=== PATIENT | female | born 1970 | race Caucasian/White ===

== ENCOUNTER 2017-05-03 07:32 | Observation (INO) | payer BC ==
[2017-05-03] MEDS ORDERED: MORPHINE SULFATE 10 MG/ML SOL IV ONE (08:08)
[2017-05-03] MEDS ORDERED: MORPHINE SULFATE 10 MG/ML SOL ONE (08:11)
[2017-05-03] MEDS: SODIUM CHLORIDE 0.9% FLUSH 10 ML SOL IV PRN ×2 (08:15→21:40)
[2017-05-03 08:20] LABS: BASOPHILS % (AUTO) 0 % (0-3); EOSINOPHILS % (AUTO) 0 % (0-9); HEMATOCRIT 40 % (35-47); MEAN CORPUSCULAR HGB CONC 33.1 gm/dl (32.0-36.0); MONOCYTES % (AUTO) 5.9 % (0-12); NEUTROPHILS % (AUTO) 85.7 % (37-80)
[2017-05-03 08:21] LABS: MEAN CORPUSCULAR VOLUME 77 fL (81-99)
[2017-05-03 08:39] LABS: ALBUMIN 3.4 gm/dl (3.4-5.0); POTASSIUM 3.7 mMol/L (3.5-5.1)
[2017-05-03] MEDS ORDERED: SODIUM CHLORIDE 0.9% 1000ML 1,000 ML IV ONE (09:22)
[2017-05-03] MEDS ORDERED: HYDROMORPHONE 1 MG/ML SYRINGE IV PRN (12:01)
[2017-05-03] MEDS ORDERED: HYDROMORPHONE HCL 2 MG/ML SOL ONE (13:07)
[2017-05-03] MEDS ORDERED: HYDROMORPHONE HCL 2 MG/ML SOL IV PRN (16:30)
[2017-05-03] MEDS: DEXTROSE/SALINE 0.45/KCL 20MEQ 1,000 ML/1,000 ML SOL IV SCH (18:20)
[2017-05-03] MEDS ORDERED: ONDANSETRON HCL 4 MG/2 ML SOL IV PRN (21:56)
[2017-05-04] MEDS: DEXTROSE/SALINE 0.45/KCL 20MEQ 1,000 ML/1,000 ML SOL IV SCH ×3 (03:14→21:24)
[2017-05-04] MEDS ORDERED: SODIUM CHLORIDE 0.9% 1000ML 1,000 ML IV ONE (07:32)
[2017-05-04] MEDS ORDERED: KETOROLAC TROMETHAMINE 30 MG/ML SOL IV PRN (07:33)
[2017-05-04] MEDS ORDERED: DEXTROSE/SALINE 0.45/KCL 20MEQ 1,000 ML/1,000 ML SOL IV ONE ×2 (11:16→21:16)
[2017-05-04] MEDS ORDERED: BISACODYL 10 MG SUP PR PRN (12:02)
[2017-05-05] MEDS ORDERED: INFLUENZA VIRUS VACCINE 0.5 ML SUS IM ONE (08:39)
[2017-05-05 08:46] VITALS: BP 135/85; PULSE 74; RESP 16; TEMP 97.9; O2SAT 96
[2017-05-05] MEDS: DEXTROSE/SALINE 0.45/KCL 20MEQ 1,000 ML/1,000 ML SOL IV SCH (10:02)
== END 2017-05-05 10:20 | disposition home or self-care (01) ==
LOC: ED 07:32 → UNDOADMOB 09:20 → ACUTE CARE 09:20
PROVIDERS: ADMIT Family Medicine; ATTEND Family Medicine
DX: K56.60 Unspecified intestinal obstruction (principal)
CPT/HCPCS: 99284 ×3; 71010; 74020 ×2; 80053; 85025; J2270; J2405; 36415; 90686; J1170; G0008